=== PATIENT | male | born 1960 | race Caucasian/White ===

== ENCOUNTER 2017-12-28 13:27 | Emergency (ER) | payer BC ==
[~2017-12-28] VITALS: Ht 177.8 cm; Wt 81.8 kg
[~2017-12-28 13:27] MED LIST: CRESTOR5 MG PO; HYDROCODON-ACE1 EAC7 PO; JANUVIA100 MG PO; K-TAB10 MEQ PO; LISINOPRIL10 MG PO; NORVASC10 MG PO; TOUJEO SOL300 UNIT/1 SC; ZIAC 10-6.25 MG1 TAB PO
[2017-12-28 13:46] VITALS: Ht 177.8 cm; Wt 81.8 kg
[2017-12-28 14:55] VITALS: BP 160/98
== END 2017-12-28 14:56 | disposition home or self-care (01) ==
LOC: D.ER 13:27
DX: S50.11XA Contusion of right forearm, initial encounter (principal); W23.0XXA Caught, crushed, jammed, or pinched between moving objects, initial encounter; Y93.89 Activity, other specified; Y92.019 Unspecified place in single-family (private) house as the place of occurrence of the external cause; E11.9 Type 2 diabetes mellitus without complications; I10 Essential (primary) hypertension